=== PATIENT | female | born 1950 | race Caucasian/White ===

== ENCOUNTER → 2017-01-12 | Outpatient (CLI) | payer MEDICARE, BC ==
[~2017-01-12] MED LIST: ACTIFED COLD &1 TA1 PO; ASPIRIN E.C.325 MG PO; BENADRYL25 MG PO; BENICAR HCT 12.1 TAB; CALTRATE-600 W600 MG PO; CO Q-1010 MG PO; COLACE50 MG PO; EPA/GLA1 SGL PO; FLOVENT 110MCG7.9 GM IH; GLUCOPHAGE500 MG/TAB PO; INDERAL80 MG PO; MVI PO; PRILOSEC PO; PRIMROSE OIL; PROAIR HFA0.09 MG/AC IH; PROBIOTIC FORMU1 CAP PO; THEODUR 300MG PO; VENTOLIN0.09 MG IH; ZOCOR5 MG PO
== END ==
LOC: MC.RAD 15:24
DX: Z12.31 Encounter for screening mammogram for malignant neoplasm of breast (principal)

== ENCOUNTER → 2017-11-29 | Outpatient (CLI) | payer MEDICARE, BC | LOC: COL.RAD 13:30 | DX: J45.30 Mild persistent asthma, uncomplicated (principal); K76.89 Other specified diseases of liver ==

== ENCOUNTER → 2018-01-27 | Outpatient (CLI) | payer MEDICARE, BC | LOC: MC.RAD 11:24 | DX: Z12.31 Encounter for screening mammogram for malignant neoplasm of breast (principal) ==

== ENCOUNTER → 2018-04-28 | Outpatient (CLI) | payer MEDICARE, BC | LOC: COL.RAD 13:10 | DX: K43.9 Ventral hernia without obstruction or gangrene (principal) | CPT/HCPCS: A9585 ==

== ENCOUNTER 2018-05-27 07:28 | Day surgery (SDC) | payer MEDICARE, BC ==
[2018-05-27] VITALS (11 sets, daily range): BP systolic 92–128; BP diastolic 48–90; PULSE 86–97; TEMP 97.5–98.6
[~2018-05-27] VITALS: Ht 165.1 cm; Wt 84.8 kg
[~2018-05-27 07:28] MED LIST changes: -CO Q-1010 MG PO; +COENZYME Q-10100 M1 PO; +OMEPRAZOLE DR PO; -PRILOSEC PO; -PRIMROSE OIL; +PRIMROSE OIL PO
[2018-05-27] MEDS ORDERED: ACTIFED PO (09:09)
[2018-05-27] MEDS ORDERED: GARCINIA CAMBOGIA PO (09:17)
[2018-05-27] MEDS ORDERED: [UNRECOGNIZED DRUG - OTHER] PO (09:17)
[2018-05-27] MEDS ORDERED: [UNRECOGNIZED DRUG - OTHER] PO (09:19)
[2018-05-27] MEDS ORDERED: MOBIC15 MG PO (09:20)
[2018-05-27] MEDS ORDERED: SYNTHROID0.05 MG/TA PO (09:23)
[2018-05-27] MEDS ORDERED: BENICAR HCT 251 TAB PO (09:24)
[2018-05-27] MEDS ORDERED: VITAMIND3 5000 PO (09:25)
[2018-05-27] MEDS ORDERED: CALCIUM PO (09:27)
[2018-05-27] MEDS ORDERED: FISH PO (09:28)
[2018-05-27] MEDS ORDERED: FLAX SEED OIL PO (09:28)
[2018-05-27] MEDS ORDERED: 00186-0370-20 IH (09:31)
[2018-05-27] MEDS ORDERED: COENZYME Q-10100 M1 PO (09:34)
[2018-05-27] MEDS ORDERED: FLONASEALLERGY NS (09:36)
[2018-05-27] MEDS ORDERED: GLUCOPHAGE XR500 M1 PO (09:38)
[2018-05-27] MEDS ORDERED: ZOCOR 20MG20 MG PO (09:40)
[2018-05-27] MEDS ORDERED: MULTI VITAMINS1 TAB PO (09:43)
[2018-05-27] MEDS ORDERED: PERCOCET 325 MG1 TA2 PO (17:25)
[2018-05-28] VITALS: BP 109/66; PULSE 96; TEMP 97.6
[2018-05-28 04:00] VITALS: BP 120/74; PULSE 89; TEMP 98.3
[2018-05-28 07:29] VITALS: BP 126/71; PULSE 81; TEMP 98.8
== END 2018-05-28 11:31 | disposition home or self-care (01) ==
LOC: SDCO 07:28 → SURG 11:57 → SDCO 05-28 11:31
DX: K45.8 Other specified abdominal hernia without obstruction or gangrene (principal); I10 Essential (primary) hypertension; J45.20 Mild intermittent asthma, uncomplicated; E78.00 Pure hypercholesterolemia, unspecified; E11.9 Type 2 diabetes mellitus without complications; K21.9 Gastro-esophageal reflux disease without esophagitis; Z79.82 Long term (current) use of aspirin; Z79.84 Long term (current) use of oral hypoglycemic drugs; Z90.710 Acquired absence of both cervix and uterus; Z88.0 Allergy status to penicillin; Z80.0 Family history of malignant neoplasm of digestive organs; Z82.49 Family history of ischemic heart disease and other diseases of the circulatory system
CPT/HCPCS: OP; A9284; C1781; J0690; J1100; J2270; J2370; J2405; J2704; J2765; J3010; J7030; J7050

== ENCOUNTER 2019-02-02 14:15 | Outpatient (RCR) | payer MEDICARE, BC ==
[~2019-02-02 14:15] MED LIST changes: +00186-0370-20 IH; +ACTIFED PO; +BENICAR HCT 251 TAB PO; +CALCIUM PO; +FISH PO; +FLAX SEED OIL PO; +FLONASEALLERGY NS; +GARCINIA CAMBOGIA PO; +GLUCOPHAGE XR500 M1 PO; +MOBIC15 MG PO; +MULTI VITAMINS1 TAB PO; +PERCOCET 325 MG1 TA2 PO; +SYNTHROID0.05 MG/TA PO; +VITAMIND3 5000 PO; +ZOCOR 20MG20 MG PO; +[UNRECOGNIZED DRUG - OTHER] PO; +[UNRECOGNIZED DRUG - OTHER] PO
== END 2019-04-26 ==
LOC: WSC
DX: M54.16 Radiculopathy, lumbar region (principal); Z98.1 Arthrodesis status

== ENCOUNTER → 2019-02-16 | Outpatient (CLI) | payer MEDICARE, BC | LOC: MC.RAD 11:21 | DX: Z12.31 Encounter for screening mammogram for malignant neoplasm of breast (principal) ==

== ENCOUNTER → 2021-11-19 | Outpatient (CLI) | payer MEDICARE, BC | LOC: MC.RAD 13:18 | DX: Z12.31 Encounter for screening mammogram for malignant neoplasm of breast (principal) ==

== ENCOUNTER → 2022-12-31 | Outpatient (CLI) | payer MEDICARE, BC | LOC: MC.RAD 14:16 | DX: Z12.31 Encounter for screening mammogram for malignant neoplasm of breast (principal) ==